=== PATIENT | male | born 1965 | race Caucasian/White ===

== ENCOUNTER → 2023-04-18 13:25 | Outpatient (REF) | payer OTHER, SELFPAY | LOC: RAD 13:25 | PROVIDERS: ATTENDING PHYSICIAN Surgery | DX: N13.2 Hydronephrosis with renal and ureteral calculous obstruction (principal) | CPT/HCPCS: 74018 ==

== ENCOUNTER 2024-03-04 19:56 | Emergency (ER) | payer OTHER, SELFPAY ==
[2024-03-04 19:58] VITALS: BP 168/90
[2024-03-04] MEDS: ZOFRAN 4 MG IV (20:25)
[2024-03-04] MEDS: TORADOL 15 MG IV (20:25)
[2024-03-04 20:31] LABS: % Basophils 0.2 % (0-2); % Eosinophils 0.2 % (0-6); % Immature Granulocytes 0.5 % (0-0.5); % Lymphocytes 14.8 % (20.5-51.1); % Monocytes 5.5 % (1.7-9.3); % Neutrophils 78.8 % (42.2-75.2); Absolute Immature Granulocytes 0.1 10^3/uL (0-0.05); Absolute Lymphocytes 1.9 10^3/uL (1.2-3.4); Absolute Monocytes 0.7 10^3/uL (0.1-0.6); Absolute Neutrophils 9.9 10^3/uL (1.4-6.5); Hematocrit 43.6 % (39.0-52.0); Hemoglobin 14.8 g/dL (13.0-18.0); Mean Corp Hgb Conc. 33.9 g/dL (33.0-37.0); Mean Corpuscular Hgb 31.2 pg (27.0-31.0); Mean Corpuscular Volume 91.8 fL (80.0-94.0); Mean Platelet Volume 10.3 fL (7.4-10.4); Nucleated Red Blood Cells % 0 % (-); Platelet Count 272 10^3/uL (130-400); Red Blood Cell Count 4.75 10^6/uL (4.70-6.10); White Blood Cell Count 12.5 10^3/uL (4.8-10.8)
[2024-03-04 20:46] LABS: Blood Urea Nitrogen 22 mg/dl (9-20); Calcium 9.8 mg/dl (8.4-10.2); Carbon Dioxide 20 mmol/L (22-30); Chloride 100 mmol/L (98-107); Glucose 131 mg/dl (70-99); Sodium 136 mmol/L (135-145); eGFR > 60.00
[2024-03-04] MEDS: MORPHINE SULFATE 4 MG IV (20:53)
--- NOTE | 2024-03-04 21:16 | ED.GENMED ---
History of Present Illness
General
Chief Complaint: Flank Pain
Time Seen by Provider: 03/04/24 20:34
History of Present Illness
History of Present Illness:
58-year-old male with a long standing history of kidney stones presenting to the emergency department for left flank pain. Patient reports left lower quadrant abdominal pain, which 2 days ago. This afternoon he was grocery shopping he had
increased abdominal, with discomfort with urination. Reports that his symptoms are classic for his prior kidney stones. He notes that he is always passed his kidney stones. He took an oxycodone prior to arrival with mild relief of symptoms. Did
have an episode of vomiting upon arrival to the hospital. Denies chest pain or difficulty breathing. Denies any history of abdominal surgeries. Denies fever. Denies additional acute medical complaints
Past History
Past History
ED Past Medical History: Cancer (Melanoma) and Other (Kidney stones)
ED Past Surgical History: None
Social History
Tobacco: Non-smoker
Alcohol: None
Personal:
Living: with family
Employment: Employed
Family History
Family History: Negative CAD
Phy Exam
Physical Exam
Physical Exam:
General: Well-appearing, no clinical signs of dehydration, nontoxic and in no acute distress
HEENT: protecting airway
Neck: appears supple
CV: Normal heart rate, regular rhythm
Resp: No accessory muscle use, no increased work of breathing
Abd: Soft and non-distended, no tenderness to palpation, no CVA tenderness
Extremities: No deformities, no swelling
Neuro: alert, no focal neurologic deficit
: deferred
Rectal: deferred
Psych: Normal affect
Skin: Intact
Course
Orders/Labs/Results
Orders:
Orders
03/04/24 20:13
Basic Metabolic Panel Urgent
Complete Blood Count/With Diff Urgent
03/04/24 20:23
Ketorolac [Toradol] 15 mg IV NOW STA
Ondansetron Injectable [Zofran] 4 mg .ROUTE .STK-MED ONE
Ondansetron Injectable [Zofran] 4 mg IV NOW STA
03/04/24 20:24
Ketorolac [Toradol] 15 mg .ROUTE .STK-MED ONE
03/04/24 20:49
CT Abd/pel Without Iv Or Oral Urgent
Comment:
Reason For Exam: L-abd pain, hx stones
Morphine Sulfate 4 mg IV NOW STA
03/04/24 21:34
Urinalysis Reflex To Culture Urgent
Date Specimen was Collected: 03/04/24
Time Specimen was Collected: 20:07
Urine Microscopic Reflex Cult Urgent
Abnormal Lab Results
03/04/24 03/04/24
20:13 21:34
WBC 12.5 H 10^3/uL
(4.8-10.8)
MCH 31.2 H pg
(27.0-31.0)
Abs Immat Gran (auto) 0.1 H 10^3/uL
(0-0.05)
Absolute Neuts (auto) 9.9 H 10^3/uL
(1.4-6.5)
Absolute Monos (auto) 0.7 H 10^3/uL
(0.1-0.6)
Neutrophils % 78.8 H %
(42.2-75.2)
Lymphocytes % 14.8 L %
(20.5-51.1)
Carbon Dioxide 20 L mmol/L
(22-30)
BUN 22 H mg/dl
(9-20)
Glucose 131 H mg/dl
(70-99)
Urine Ketones 3+ A
(Negative)
Ur Occult Blood Reflex 3+ A
(Negative)
Urine RBC 30-40 A /HPF
(0-2)
Urine Bacteria (Reflex) Few A
(Negative)
03/04/24 20:13
03/04/24 20:13
Vital Signs
Initial and Last Documented VS:
Initial Vital Signs
Temp Pulse Resp BP Pulse Ox
98.2 F 70 20 168/90 99
03/04/24 19:58 03/04/24 19:58 03/04/24 19:58 03/04/24 19:58 03/04/24 19:58
Last Documented Vital Signs
Temp Pulse Resp BP Pulse Ox
98.2 F 68 18 168/90 99
03/04/24 19:58 03/04/24 22:00 03/04/24 22:00 03/04/24 19:58 03/04/24 22:00
MDM/Problems Addressed
MDM/Problems Addressed:
58-year-old male with history of kidney stones presenting for left lower quadrant abdominal pain. Vital signs are significant for high blood pressure.
On exam, patient is in no significant discomfort, however did receive Zofran and Toradol prior to my assessment. Notes that the pain has slightly improved. Symptoms appear consistent with nephrolithiasis, given longstanding history. Plan for
laboratory analysis, urinalysis, CT imaging. Will also administer morphine for continued pain. Lower suspicion for infected stone afebrile and nontoxic.
00:15 -urine without any sign of infection. CT is consistent with a 4 mm renal stone with mild hydronephrosis and some perinephric fluid. At this time, patient remains stable and comfortable, with concern for infected stone. Feel stable for
discharge with close outpatient urologic follow-up. Will prescribe pain medicine. Strict return precautions were communicated to patient who verbalized understanding
*Critical Care Note
Total Time (30-74mins, 75-104mins- exclusive of procedures): Not Applicable
ED Attending Note
-
Portions of this chart may have been created with voice recognition software.� Occasional wrong word or��sound alike� substitutions may have occurred due to the inherent limitations of voice recognition software.
Discharge Plan
Departure
Prescriptions:
No Action
oxycodone-acetaminophen 5 MG/325 MG tablet
1 tab PO Q4HPRN PRN (Reason: pain) Qty: 12 0RF
tamsulosin 0.4 MG capsule
0.4 mg PO DAILY Qty: 10 0RF
Referrals:
Jennifer Fajardo CRNP [Family Provider] -
Interventions
Interventions:
*Risk Screen - Suicide Last Done: 03/04/24 19:58
*General Assessment Last Done: 03/04/24 19:58
*Neglect/Abuse Screening Last Done: 03/04/24 19:58
ED- Fall Risk Assessment Last Done: 03/04/24 19:58
*ED COVID-19 Vaccine History Last Done: 03/04/24 19:58
WQ-Crakst-Qxojzrxqil Assessment Last Done: 03/04/24 20:44
ED-Male Genitourinary Assessment Last Done: 03/04/24 20:44
Discharge Date and Time
Print Language: NICARAGU[place]
[2024-03-04 21:42] LABS: Urine Albumin Trace (Neg - Trace); Urine Bilirubin Negative (Negative); Urine Character Clear (Clear); Urine Color Yellow; Urine Glucose Negative (Negative); Urine Ketone 3+ (Negative); Urine Leukocyte Negative (Negative); Urine Nitrite Negative (Negative); Urine Occult Blood 3+ (Negative); Urine Specific Gravity 1.015 (<1.030); Urine Urobilinogen Negative (Neg - 1+)
[2024-03-04 21:52] LABS: Urine Squamous Cell 0-2 /LPF (Few)
[2024-03-04 21:53] LABS: Urine Bacteria Few (Negative); Urine Red Blood Cell 30-40 /HPF (0-2); Urine White Cell 0-2 /HPF (0-5)
[2024-03-05] MEDS: MORPHINE SULFATE 4 MG IV (00:24)
[2024-03-05 00:33] VITALS: BP 159/62
== END 2024-03-05 00:34 | disposition home or self-care (01) ==
LOC: EMR 19:56
PROVIDERS: Emergency Medicine; EMERGENCY PHYSICIAN Student in an Organized Health Care Education/Training Program; FAMILY PHYSICIAN Nurse Practitioner Family
DX: N13.2 Hydronephrosis with renal and ureteral calculous obstruction (principal); Z85.820 Personal history of malignant melanoma of skin
CPT/HCPCS: 96374; 96375; 96376; 99284; 74176; 80048; 81003; 81015; 85025

== ENCOUNTER → 2024-03-28 09:36 | Outpatient (REF) | payer OTHER, SELFPAY | LOC: RCS 09:36 | PROVIDERS: ATTENDING PHYSICIAN Nurse Practitioner Family | DX: R06.02 Shortness of breath (principal); R94.31 Abnormal electrocardiogram [ECG] [EKG] | CPT/HCPCS: 93017; 93350 ==

== ENCOUNTER → 2024-03-30 10:06 | Outpatient (REF) | payer OTHER, SELFPAY | LOC: RCS 10:06 | PROVIDERS: ATTENDING PHYSICIAN Nurse Practitioner Family | DX: R00.2 Palpitations (principal) | CPT/HCPCS: 93225; 93226 ==